=== PATIENT | female | born 2005 | race Caucasian/White ===

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

== ENCOUNTER 2025-03-18 00:12 | Emergency (ER) | payer BC, SELFPAY ==
[2025-03-18] VITALS (38 sets, daily range): BP systolic 75–135; BP diastolic 43–85; PULSE 52–95; RESP 8–22; TEMP 36.6–36.8; O2SAT 94–100; BMI 34.7
--- NOTE | 2025-03-18 | XR_ITS ---
MRI abdomen, without contrast. MRCP Date and time of exam: March 18, 2025 0924 hours INDICATIONS: Nausea right upper abdominal pain today, history Technique: Multiple axial and coronal images of the abdomen have been obtained with the Siemens 1.5T MRI scanner. Images obtained included T1 weighted transverse images, T2-weighted transverse images, T2-weighted transverse images fat-suppressed, T2 weighted haste fat suppressed transverse images, T1 weighted images, in and out of phase images, T2-weighted coronal images, breath hold, T2 weighted haze coronal images as well as T2 weighted coronal thick slab images, MRCP. Findings: Hepatomegaly 19 cm Absent gallbladder Common bile duct 3 to 4 mm no common bile duct or common hepatic duct stones Spleen 12 cm No pancreatic mass or peripancreatic edema No hydronephrosis No ascites Aorta normal size IMPRESSION: Moderate hepatomegaly Absent gallbladder No common bile duct or common bile duct stones Negative for pancreatitis
--- NOTE | 2025-03-18 00:53 | EDNOTE_ITS ---
ED Abdominal Pain RME/HPI General Chief Complaint: Abdominal Pain Stated complaint: R SIDE ABD PAIN Time seen by provider: 03/18/25 00:38 Arrival date/time: 03/18/25 00:12 RME / HPI RME / HPI narrative: This section includes all my notes and documentations, including HPI, PE, and ED course. Humberto Kang MD HPI: 19yo female s/p cholecystectomy, gastric sleeve accompanied by her mom presents to the ED for a chief complaint of RUQ pain. Patient states she's had an upset stomach all week, reporting her pain got significantly worse over the last few hours. Patient reports associated sweating, nausea, and vomiting, endorsing she is unable to keep anything down. Patient denies any fever, chills, dysuria, rash or any other associated symptoms. No other complaints reported. ROS: All negative except as documented in HPI. Physical Exam: General: Alert and oriented. In obvious pain. Eyes: Conjunctivae and lids clear. ENT: No nasal congestion. Neck: Supple. Heart: RRR. Lungs: No respiratory distress. Good air movement. No rhonchi, wheezing, rales. Abdomen: Soft with tenderness in the right flank and RUQ regions. Normal bowel sounds. No distension. No rebound or guarding. Back: No CVA tenderness. Skin: Warm and dry. Neuro: Alert and oriented X 3. Initially, patient was given Zofran ODT and two Tylenol #3. With no improvement, I ordered IV fluid, morphine, Toradol, and diagnostic tests. At 6 AM on 03/18/2025, the care of the patient was transferred to Dr. Zambrano. Humberto Kang MD Related Data Allergies Allergy/AdvReac Type Severity Reaction Status Date / Time No Known Allergies Allergy Verified 03/18/25 00:19 Review of Systems Review of Systems Systems Reviewed: All systems reviewed, normal except as documented Past Medical History Past Medical History CARDIAC: Negative Congestive Heart Failure RESPIRATORY: Positive Chronic Obstructive Pulmonary Disease (COPD) GENITOURINARY: Negative Renal Disease ENDOCRINE: Negative Diabetes Mellitus Type 1 or Diabetes Mellitus Type 2 Surgical History SURGICAL: Positive Tonsillectomy Social History SMOKING STATUS: Never smoker ED Exam Narrative Physical exam: As noted in HPI. Course Quality Measures none Orders Category Date Time Status Saline [Insert IV] NOW Care 03/18/25 03:[address] abdomen pelvis wo con Stat Exams 03/18/25 01:12 Taken US gall bladder Stat Exams 03/18/25 01:13 Taken Amylase Stat Lab 03/18/25 01:30 Completed Bilirubin,Direct Stat Lab 03/18/25 01:30 Completed CBC Stat Lab 03/18/25 01:30 Completed CMP [Comprehensive Metabolic Panel] Stat Lab 03/18/25 01:30 Completed HCG Qualitative,Urine Stat Lab 03/18/25 03:13 Completed HCG,Qualitative Serum Stat Lab 03/18/25 01:30 Completed Lipase Stat Lab 03/18/25 01:30 Completed Magnesium Stat Lab 03/18/25 01:30 Completed UA, C/S IF [Urinalysis, C/S if Indicated] Stat Lab 03/18/25 03:13 Completed ACETAMINOPHEN w/COD 300-30 [Tylenol w/Cod #3] Med 03/18/25 01:12 Discontinued 2 tab PO X1 ONE Ketorolac Inj [Toradol Inj] Med 03/18/25 03:14 Discontinued 30 mg IVP X1 ONE Morphine Inj Med 03/18/25 03:14 Discontinued 6 mg IVP X1 ONE Ondansetron Inj [Zofran Inj] Med 03/18/25 03:14 Discontinued 4 mg IVP X1 ONE Ondansetron Odt [Zofran Odt] Med 03/18/25 01:12 Discontinued 4 mg PO X1 ONE Sodium Chloride 0.9% 1000 ml [Ns] 1,000 ml Med 03/18/25 03:14 Discontinued IV 999 mls/hr Vital Signs Vital signs: Vital Signs Temperature 98.1 F 03/18/25 01:42 Pulse Rate 86 03/18/25 01:42 Respiratory Rate 17 03/18/25 01:42 Blood Pressure 130/85 H 03/18/25 01:42 Pulse Oximetry (%) 98 03/18/25 01:42 Oxygen Delivery Method Room Air 03/18/25 01:42 Abdominal Pain MDM MDM Narrative MDM Narrative:: 19yo female s/p cholecystectomy, gastric sleeve accompanied by her mom presents to the ED for a chief complaint of RUQ pain. Patient states she's had an upset stomach all week, reporting her pain got significantly worse over the last few hours. Patient reports associated sweating, nausea, and vomiting, endorsing she is unable to keep anything down. Patient denies any fever, chills, dysuria, rash or any other associated symptoms. No other complaints reported. Patient data External records reviewed:: [facility] previous records (Per chart review, patient has no relevant previous ED visits.) Clinical information provided by:: patient Social determinants that could affect healthcare access:: none Patient has the following chronic illnesses:: none How is presenting disease/condition affected by chronic disease/condition?: no chronic disease Evaluation data The following diagnostics were reviewed and interpreted by me:: lab results and radiology exam(s) Lab and/or radiology exams considered but not ordered:: none Interpretation Summary: Complete diagnostic test results are pending. Medications / Prescriptions Medications or Prescriptions considered but not ordered:: none Medication administrations:: Medication Administration History Discontinued Medications Acetaminophen/Codeine Phosphate (Acetaminophen W/Cod 300-30 Tablet) 2 tab PO X1 ONE Stop: 03/18/25 01:13 Last Admin: 03/18/25 01:39 Dose: 2 tab Documented By: LUIS Sodium Chloride (Ns) 1,000 mls @ 999 mls/hr IV .Q1H1M ONE Stop: 03/18/25 04:14 Last Admin: 03/18/25 04:05 Dose: 999 mls/hr Documented By: ELYSSA Ketorolac Tromethamine (Ketorolac Inj 30 Mg/Ml Vial) 30 mg IVP X1 ONE Stop: 03/18/25 03:15 Last Admin: 03/18/25 04:04 Dose: 30 mg Documented By: CCT Morphine Sulfate (Morphine Sulf Inj 10 Mg/Ml Vial) 6 mg IVP X1 ONE Stop: 03/18/25 03:15 Last Admin: 03/18/25 04:04 Dose: 6 mg Documented By: CCT Ondansetron HCl (Ondansetron Odt 4 Mg Tabrap) 4 mg PO X1 ONE; Protocol Stop: 03/18/25 01:13 Last Admin: 03/18/25 01:39 Dose: 4 mg Documented By: LUIS Ondansetron HCl (Ondansetron Inj 2 Mg/Ml Inj 2 Ml) 4 mg IVP X1 ONE; Protocol Stop: 03/18/25 03:15 Last Admin: 03/18/25 04:05 Dose: 4 mg Documented By: CCT Tylenol with Codeine, NS, Toradol, Morphine, Zofran Consultations Consultation(s) initiated? (list below): No Diagnosis Differential diagnosis abdominal pain: acute appendicitis, calculus of kidney, constipation, diverticulitis, endometriosis, gastroenteritis, pancreatitis and small bowel obstruction Most likely diagnosis given after review of the tests above:: Complete diagnostic test results are pending. Admission Indicated Admission indicated?: not indicated Explain why admission is indicated or not indicated:: Complete diagnostic test results are pending. Admission Request Was there a request for admission?: No Disposition Plan Disposition Plan: other (specify) (Care of the patient was transferred to next s [facility] physician.) Discharge Plan Prescriptions/Referrals Referrals: Toro Lange MD [Primary Care Provider] - In 1 week Problem List Clinical Impression: Abdominal pain Patient/Caregiver Discharge Instructions Print Language: Khmer
--- NOTE | 2025-03-18 01:12 | XR_ITS ---
Examination: CT abdomen and pelvis without contrast. Coronal 3-D reconstructions. Sagittal 2-D reconstructions. Date and time of exam:March 18, 2025 0438 hours INDICATIONS: Onset flank pain today CTDI: vol (mGy): 12 DLP: (mGycm): 708 Technique: Axial images of the abdomen have been obtained, 3 mm slice thickness Intravenous contrast material has not been administered. Low dose protocols were performed. One or more of the following dose reduction techniques were used; automated exposure control, adjustment of the mA and/or KV according to patient size, use of iterative reconstruction technique. Findings: No focal liver or splenic lesions Gastric sutures Absent gallbladder No pancreatic mass 2 mm right renal calculus, no hydronephrosis or ureteral calculi Normal appendix No bowel obstruction 39 mm hypodense left adnexal mass Mild free fluid in the pelvis No bladder mass or bladder calculi IMPRESSION: 2 mm nonobstructing right renal calculus, no hydronephrosis or ureteral calculi Recommend pelvic sonography to assess 39 mm hypodense left adnexal mass
--- NOTE | 2025-03-18 01:13 | XR_ITS ---
Examination: Abdomen sonogram, Limited Date and time of exam: March 18, 2025 0226 hours indications: Right upper abdominal pain and nausea beginning today. Technique: Real-time julio scale transabdominal sonographic images of the upper abdomen obtained. Findings: Absent gallbladder Common bile duct 0.4 cm no stones Pancreatic head 2.5 cm Liver 18.1 cm fatty infiltration lobular contour Normal hepatopedal portal venous flow Patent IVC IMPRESSION: No common bile duct stones Mild hepatomegaly fatty infiltration, suspect primary hepatocellular disease
[2025-03-18] MEDS: ONDANSETRON ODT 4 MG TABRAP PO (01:39)
[2025-03-18] MEDS: ACETAMINOPHEN w/COD 300-30 TABLET 2 TAB PO (01:39)
[2025-03-18 01:59] LABS: Basophils % (Auto) 0 % (0-2.5); Eosinophils # (Auto) 0.2 Thou/mm3 (0.0-0.5); Eosinophils % (Auto) 2 % (0-10); Hematocrit 35.8 % (36.0-46.0); Hemoglobin 12.4 g/dL (12.0-16.0); Immature Granulocytes % (Auto) 1 % (0-0); Immature Granulocytes Auto 0.05 Thou/mm3 (0.00-0.00); Lymphocytes # (Auto) 1.2 Thou/mm3 (1.0-5.0); Lymphocytes % (Auto) 11 % (10-50); Mean Corpuscular HGB Conc 34.6 g/dl (31.0-37.0); Mean Corpuscular Hemoglobin 28.6 pg (25.0-35.0); Mean Corpuscular Volume 83 fL (80-100); Monocytes % (Auto) 9 % (0-12); Neutrophils # (Auto) 8.5 Thou/mm3 (1.8-7.7); Neutrophils % (Auto) 77 % (37-80); Nucleated Red Blood Cell % 0 /100 WBC (0); Platelet Count 230 Thou/mm3 (140-440); RDW Standard Deviation 39.2 fL (36.4-46.3); Red Blood Count 4.33 Miln/mm3 (4.00-5.20); White Blood Count 10.9 Thou/mm3 (4.5-11.0)
[2025-03-18 02:23] LABS: Alanine Aminotransferase 17 U/L (10-49); Albumin, Serum 4.2 gm/dL (3.5-5.0); Albumin/Globulin Ratio 2.2 (1.2-2.2); Alkaline Phosphatase 71 U/L (46-116); Amylase 56 U/L (30-118); Anion Gap 10 (7-16); Aspartate Amino Transferase 25 U/L (0-34); BUN/Creatinine Ratio 16 Ratio (12-20); Bilirubin,Direct 0.3 mg/dL (0.0-0.3); Bilirubin,Total 1.1 mg/dL (0.3-1.2); Blood Urea Nitrogen 11 mg/dL (9-23); Calcium 8.4 mg/dL (8.3-10.6); Calcium (Corrected) 8.4 mg/dL (8.5-10.1); Carbon Dioxide 25.6 mMol/L (20.0-31.0); Chloride 106 mMol/L (98-107); Creatinine (Component) 0.7 mg/dL (0.6-1.3); Estimated Creatinine Clearance 152.2 mL/min (>60); Globulin 1.9 gm/dL (2.3-3.5); Glucose 96 mg/dL (74-106); Lipase 58 U/L (12-53); Magnesium 1.9 mg/dL (1.6-2.6); Osmolality,Calculated 282 (275-295); Potassium 3.8 mMol/L (3.4-5.1); Sodium 142 mMol/L (136-145); Total Protein 6.1 gm/dL (5.7-8.2); eGFR > 60 See Note
[2025-03-18 02:31] LABS: HCG,Qualitative Serum Negative
[2025-03-18 03:18] LABS: Collection Type, Urine Clean Catch
[2025-03-18 03:43] LABS: HCG Qualitative,Urine Negative
[2025-03-18 03:51] LABS: Bacteria,Urine Rare; Bilirubin,Urine Negative (Negative); Blood,Urine Negative (Negative); Clarity,Urine Clear (Clear/Hazy); Color,Urine Yellow (Lt Yel-Yel); Culture Indicated,Urine Contaminated; Glucose, Urine Negative (Negative); Ketones,Urine Negative (Negative); Leukocyte Esterase,Urine Positive (Negative); Nitrite,Urine Negative (Negative); Protein,Urine Negative (Neg - Trace); RBC,Urine 10 /hpf (0-3); Squamous Epithelial Cell,Urine 19 /hpf (0-5); WBC,Urine 11 /hpf (0-5)
[2025-03-18] MEDS: KETOROLAC INJ 30 MG/ML VIAL IVP (04:04)
[2025-03-18] MEDS: MORPHINE SULF INJ 10 MG/ML VIAL 6 MG IVP (04:04)
[2025-03-18] MEDS: SODIUM CHLORIDE 0.9% 1000 ML 1,000 ML 999 ML IV (04:05)
[2025-03-18] MEDS: ONDANSETRON INJ 2 MG/ML INJ 2 ML 4 MG IVP (04:05)
--- NOTE | 2025-03-18 06:41 | EDNOTE_ITS ---
Emergency Room Addendum <Merary Frost - Last Filed: 03/18/25 16:52> Addendum Narrative: 0600: Care assumed from Dr. Kang, the previous shift emergency physician. Past medical, surgical, social and family history reviewed. Vitals and home medications reviewed. I will assume the care of the patient at this time. Please refer to the emergency department record for history and examination from initial visit.? Physical exam by me shows patient under no acute distress at this time. Patient was reevaluated she is alert awake states she feels little tired no obvious icterus. Abdomen is soft there is no longer vomiting asking she can drink some fluids. Reports for the ultrasound and CT are pending at 0720 hrs. Also mother is in the room patient evidently had gastric bypass surgery done several years ago with Dr. Stein in [place]. Patient was also sent to [facility] and then evidently [facility] where she had her gallbladder removed and was told she had choledocholithiasis but no ERCP was done and has not been done since that time no follow-up MRCP has been done. And patient has her second episode of intractable nausea and vomiting today. She denies any drugs or alcohol. Does not smoke. Has no other medical problems at this time. 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 Will add on a urine drug screen and an MRCP to follow-up on the history of choledocholithiasis and unexplained nausea vomiting today. 0735: I called Jolene and Kieran that there are still no radiology reports. 1420: Discussed test HPI, PMHx, lab, radiology results and/or management with Dr. Stein from [facility]. Accepts the patient for transfer. <Meño Zambrano MD - Last Filed: 03/18/25 20:49> Addendum Narrative: 0600: Care assumed from Dr. Kang, the previous shift emergency physician. Past medical, surgical, social and family history reviewed. Vitals and home medications reviewed. I will assume the care of the patient at this time. Please refer to the emergency department record for history and examination from initial visit.? Physical exam by me shows patient under no acute distress at this time. Patient was reevaluated she is alert awake states she feels little tired no obvious icterus. Abdomen is soft there is no longer vomiting asking she can drink some fluids. Reports for the ultrasound and CT are pending at 0720 hrs. Also mother is in the room patient evidently had gastric bypass surgery done several years ago with Dr. Stein in [place]. Patient was also sent to [facility] and then evidently the [facility] where she had her gallbladder removed and was told she had choledocholithiasis but no ERCP was done and has not been done since that time no follow-up MRCP has been done. And patient has her second episode of intractable nausea and vomiting today. She denies any drugs or alcohol. Does not smoke. Has no other medical problems at this time. 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 Will add on a urine drug screen and an MRCP to follow-up on the history of choledocholithiasis and unexplained nausea vomiting today. 0735: I called Stormy that there are still no radiology reports. 1420: Discussed test HPI, PMHx, lab, radiology results and/or management with Dr. Stein from [facility]. Accepts the patient for transfer. Transfer nurse was involved they consummated the transfer patient eventually went to the [facility] in [place]. Results <Merary Frost - Last Filed: 03/18/25 16:52> Objective Laboratory: Laboratory Last Values WBC 10.9 Thou/mm3 (4.5-11.0) 03/18/25 01:30 RBC 4.33 Miln/mm3 (4.00-5.20) 03/18/25 01:30 Hgb 12.4 g/dL (12.0-16.0) 03/18/25 01:30 Hct 35.8 % (36.0-46.0) L 03/18/25 01:30 MCV 83 fL (80-100) 03/18/25 01:30 MCH 28.6 pg (25.0-35.0) 03/18/25 01:30 MCHC 34.6 g/dl (31.0-37.0) 03/18/25 01:30 RDW Std Deviation 39.2 fL (36.4-46.3) 03/18/25 01:30 Plt Count 230 Thou/mm3 (140-440) 03/18/25 01:30 Neut % (Auto) 77 % (37-80) 03/18/25 01:30 Lymph % (Auto) 11 % (10-50) 03/18/25 01:30 Guadalupe % (Auto) 9 % (0-12) 03/18/25 01:30 Eos % (Auto) 2 % (0-10) 03/18/25 01:30 Baso % (Auto) 0 % (0-2.5) 03/18/25 01:30 Neut # (Auto) 8.5 Thou/mm3 (1.8-7.7) H 03/18/25 01:30 Lymph # (Auto) 1.2 Thou/mm3 (1.0-5.0) 03/18/25 01:30 [place]upe # (Auto) 1.0 Thou/mm3 (0.0-0.8) H 03/18/25 01:30 Eos # (Auto) 0.2 Thou/mm3 (0.0-0.5) 03/18/25 01:30 Baso # (Auto) 0.0 Thou/mm3 (0.0-0.2) 03/18/25 01:30 Immature Gran # (Auto) 0.05 Thou/mm3 (0.00-0.00) H 03/18/25 01:30 Absolute Nucleated RBC 0.00 Thou/mm3 (0.00-0.00) 03/18/25 01:30 Immature Gran % 1 % (0-0) H 03/18/25 01:30 Nucleated RBC % 0 /100 WBC (0) 03/18/25 01:30 Sodium 142 mMol/L (136-145) 03/18/25 01:30 Potassium 3.8 mMol/L (3.4-5.1) 03/18/25 01:30 Chloride 106 mMol/L (98-107) 03/18/25 01:30 Carbon Dioxide 25.6 mMol/L (20.0-31.0) 03/18/25 01:30 Anion Gap 10 (7-16) 03/18/25 01:30 BUN 11 mg/dL (9-23) 03/18/25 01:30 Creatinine 0.7 mg/dL (0.6-1.3) 03/18/25 01:30 Estim Creat Clear Calc 152.2 mL/min (>60) 03/18/25 01:30 eGFR > 60 See Note (60-) 03/18/25 01:30 BUN/Creatinine Ratio 16 Ratio (12-20) 03/18/25 01:30 Glucose 96 mg/dL (74-106) 03/18/25 01:30 Calculated Osmolality 282 (275-295) 03/18/25 01:30 Calcium 8.4 mg/dL (8.3-10.6) 03/18/25 01:30 Corrected Calcium 8.4 mg/dL (8.5-10.1) L 03/18/25 01:30 Magnesium 1.9 mg/dL (1.6-2.6) 03/18/25 01:30 Total Bilirubin 1.1 mg/dL (0.3-1.2) 03/18/25 01:30 Direct Bilirubin 0.3 mg/dL (0.0-0.3) 03/18/25 01:30 AST 25 U/L (0-34) 03/18/25 01:30 ALT 17 U/L (10-49) 03/18/25 01:30 Alkaline Phosphatase 71 U/L (46-116) 03/18/25 01:30 Total Protein 6.1 gm/dL (5.7-8.2) 03/18/25 01:30 Albumin 4.2 gm/dL (3.5-5.0) 03/18/25 01:30 Globulin 1.9 gm/dL (2.3-3.5) L 03/18/25 01:30 Albumin/Globulin Ratio 2.2 (1.2-2.2) 03/18/25 01:30 Amylase 56 U/L (30-118) 03/18/25 01:30 Lipase 58 U/L (12-53) H 03/18/25 01:30 HCG, Qual Negative 03/18/25 01:30 Ur Collection Type Clean Catch 03/18/25 03:13 Urine Color Yellow (Lt Yel-Yel) 03/18/25 03:13 Urine Clarity Clear (Clear/Hazy) 03/18/25 03:13 Urine pH 6.0 (5.0-7.0) 03/18/25 03:13 Ur Specific [place] 1.030 (1.001-1.035) 03/18/25 03:13 Urine Protein Negative (Neg - Trace) 03/18/25 03:13 Urine Glucose (UA) Negative (Negative) 03/18/25 03:13 Urine Ketones Negative (Negative) 03/18/25 03:13 Urine Blood Negative (Negative) 03/18/25 03:13 Urine Nitrite Negative (Negative) 03/18/25 03:13 Urine Bilirubin Negative (Negative) 03/18/25 03:13 Urine Urobilinogen (Auto) 2.0 mg/dL (0.0-1.0) 03/18/25 03:13 Ur Leukocyte Esterase Positive (Negative) 03/18/25 03:13 Urine RBC 10 /hpf (0-3) H 03/18/25 03:13 Urine WBC 11 /hpf (0-5) H 03/18/25 03:13 Ur Squamous Epith Cells 19 /hpf (0-5) H 03/18/25 03:13 Urine Bacteria Rare (None) 03/18/25 03:13 Ur Culture Indicated? Contaminated 03/18/25 03:13 Urine HCG, Qual Negative 03/18/25 03:13 Imaging: Procedure(s): US gall bladder Accession Number(s): [id number] cc: Humberto Kang MD; Valdo Alcaraz MD; Toro Lange MD~ Examination: Abdomen sonogram, Limited Date and time of exam: March 18, 2025 0226 hours indications: Right upper abdominal pain and nausea beginning today. Technique: Real-time julio scale transabdominal sonographic images of the upper abdomen obtained. Findings: Absent gallbladder Common bile duct 0.4 cm no stones Pancreatic head 2.5 cm Liver 18.1 cm fatty infiltration lobular contour Normal hepatopedal portal venous flow Patent IVC IMPRESSION: No common bile duct stones Mild hepatomegaly fatty infiltration, suspect primary hepatocellular disease Dictated By: Valdo Alcaraz MD Procedure(s): CT abdomen pelvis wo con Accession Number(s): [id number] cc: Humberto Kang MD; Valdo Alcaraz MD; Toro Lange MD~ Examination: CT abdomen and pelvis without contrast. Coronal 3-D reconstructions. Sagittal 2-D reconstructions. Date and time of exam:March 18, 2025 0438 hours INDICATIONS: Onset flank pain today CTDI: vol (mGy): 12 DLP: (mGycm): 708 Technique: Axial images of the abdomen have been obtained, 3 mm slice thickness Intravenous contrast material has not been administered. Low dose protocols were performed. One or more of the following dose reduction techniques were used; automated exposure control, adjustment of the mA and/or KV according to patient size, use of iterative reconstruction technique. Findings: No focal liver or splenic lesions Gastric sutures Absent gallbladder No pancreatic mass 2 mm right renal calculus, no hydronephrosis or ureteral calculi Normal appendix No bowel obstruction 39 mm hypodense left adnexal mass Mild free fluid in the pelvis No bladder mass or bladder calculi IMPRESSION: 2 mm nonobstructing right renal calculus, no hydronephrosis or ureteral calculi Recommend pelvic sonography to assess 39 mm hypodense left adnexal mass Dictated By: Valdo Alcaraz MD Procedure(s): MR MRCP Accession Number(s): [id number] cc: Meño Zambrano MD; Valdo Alcaraz MD; Toro Lange MD~ MRI abdomen, without contrast. MRCP Date and time of exam: March 18, 2025 0924 hours INDICATIONS: Nausea right upper abdominal pain today, history Technique: Multiple axial and coronal images of the abdomen have been obtained with the Siemens 1.5T MRI scanner. Images obtained included T1 weighted transverse images, T2-weighted transverse images, T2-weighted transverse images fat-suppressed, T2 weighted haste fat suppressed transverse images, T1 weighted images, in and out of phase images, T2-weighted coronal images, breath hold, T2 weighted haze coronal images as well as T2 weighted coronal thick slab images, MRCP. Findings: Hepatomegaly 19 cm Absent gallbladder Common bile duct 3 to 4 mm no common bile duct or common hepatic duct stones Spleen 12 cm No pancreatic mass or peripancreatic edema No hydronephrosis No ascites Aorta normal size IMPRESSION: Moderate hepatomegaly Absent gallbladder No common bile duct or common bile duct stones Negative for pancreatitis Dictated By: Valdo Alcaraz MD <Meño Zambrano MD - Last Filed: 03/18/25 20:49> Objective Laboratory: Laboratory Last Values WBC 10.9 Thou/mm3 (4.5-11.0) 03/18/25 01:30 RBC 4.33 Miln/mm3 (4.00-5.20) 03/18/25 01:30 Hgb 12.4 g/dL (12.0-16.0) 03/18/25 01:30 Hct 35.8 % (36.0-46.0) L 03/18/25 01:30 MCV 83 fL (80-100) 03/18/25 01:30 MCH 28.6 pg (25.0-35.0) 03/18/25 01:30 MCHC 34.6 g/dl (31.0-37.0) 03/18/25 01:30 RDW Std Deviation 39.2 fL (36.4-46.3) 03/18/25 01:30 Plt Count 230 Thou/mm3 (140-440) 03/18/25 01:30 Neut % (Auto) 77 % (37-80) 03/18/25 01:30 Lymph % (Auto) 11 % (10-50) 03/18/25 01:30 [place]upe % (Auto) 9 % (0-12) 03/18/25 01:30 Eos % (Auto) 2 % (0-10) 03/18/25 01:30 Baso % (Auto) 0 % (0-2.5) 03/18/25 01:30 Neut # (Auto) 8.5 Thou/mm3 (1.8-7.7) H 03/18/25 01:30 Lymph # (Auto) 1.2 Thou/mm3 (1.0-5.0) 03/18/25 01:30 [place] # (Auto) 1.0 Thou/mm3 (0.0-0.8) H 03/18/25 01:30 Eos # (Auto) 0.2 Thou/mm3 (0.0-0.5) 03/18/25 01:30 Baso # (Auto) 0.0 Thou/mm3 (0.0-0.2) 03/18/25 01:30 Immature Gran # (Auto) 0.05 Thou/mm3 (0.00-0.00) H 03/18/25 01:30 Absolute Nucleated RBC 0.00 Thou/mm3 (0.00-0.00) 03/18/25 01:30 Immature Gran % 1 % (0-0) H 03/18/25 01:30 Nucleated RBC % 0 /100 WBC (0) 03/18/25 01:30 Sodium 142 mMol/L (136-145) 03/18/25 01:30 Potassium 3.8 mMol/L (3.4-5.1) 03/18/25 01:30 Chloride 106 mMol/L (98-107) 03/18/25 01:30 Carbon Dioxide 25.6 mMol/L (20.0-31.0) 03/18/25 01:30 Anion Gap 10 (7-16) 03/18/25 01:30 BUN 11 mg/dL (9-23) 03/18/25 01:30 Creatinine 0.7 mg/dL (0.6-1.3) 03/18/25 01:30 Estim Creat Clear Calc 152.2 mL/min (>60) 03/18/25 01:30 eGFR > 60 See Note (60-) 03/18/25 01:30 BUN/Creatinine Ratio 16 Ratio (12-20) 03/18/25 01:30 Glucose 96 mg/dL (74-106) 03/18/25 01:30 Calculated Osmolality 282 (275-295) 03/18/25 01:30 Calcium 8.4 mg/dL (8.3-10.6) 03/18/25 01:30 Corrected Calcium 8.4 mg/dL (8.5-10.1) L 03/18/25 01:30 Magnesium 1.9 mg/dL (1.6-2.6) 03/18/25 01:30 Total Bilirubin 1.1 mg/dL (0.3-1.2) 03/18/25 01:30 Direct Bilirubin 0.3 mg/dL (0.0-0.3) 03/18/25 01:30 AST 25 U/L (0-34) 03/18/25 01:30 ALT 17 U/L (10-49) 03/18/25 01:30 Alkaline Phosphatase 71 U/L (46-116) 03/18/25 01:30 Total Protein 6.1 gm/dL (5.7-8.2) 03/18/25 01:30 Albumin 4.2 gm/dL (3.5-5.0) 03/18/25 01:30 Globulin 1.9 gm/dL (2.3-3.5) L 03/18/25 01:30 Albumin/Globulin Ratio 2.2 (1.2-2.2) 03/18/25 01:30 Amylase 56 U/L (30-118) 03/18/25 01:30 Lipase 58 U/L (12-53) H 03/18/25 01:30 HCG, Qual Negative 03/18/25 01:30 Ur Collection Type Clean Catch 03/18/25 03:13 Urine Color Yellow (Lt Yel-Yel) 03/18/25 03:13 Urine Clarity Clear (Clear/Hazy) 03/18/25 03:13 Urine pH 6.0 (5.0-7.0) 03/18/25 03:13 Ur Specific [place] 1.030 (1.001-1.035) 03/18/25 03:13 Urine Protein Negative (Neg - Trace) 03/18/25 03:13 Urine Glucose (UA) Negative (Negative) 03/18/25 03:13 Urine Ketones Negative (Negative) 03/18/25 03:13 Urine Blood Negative (Negative) 03/18/25 03:13 Urine Nitrite Negative (Negative) 03/18/25 03:13 Urine Bilirubin Negative (Negative) 03/18/25 03:13 Urine Urobilinogen (Auto) 2.0 mg/dL (0.0-1.0) 03/18/25 03:13 Ur Leukocyte Esterase Positive (Negative) 03/18/25 03:13 Urine RBC 10 /hpf (0-3) H 03/18/25 03:13 Urine WBC 11 /hpf (0-5) H 03/18/25 03:13 Ur Squamous Epith Cells 19 /hpf (0-5) H 03/18/25 03:13 Urine Bacteria Rare (None) 03/18/25 03:13 Ur Culture Indicated? Contaminated 03/18/25 03:13 Urine HCG, Qual Negative 03/18/25 03:13
[2025-03-18] MEDS: METOCLOPRAMIDE INJ 5 MG/ML VIAL 2 ML 10 MG IVP ×3 (07:55→15:46)
[2025-03-18] MEDS: SODIUM CHLORIDE 0.9% 1000 ML 1,000 ML 150 ML IV (07:56)
[2025-03-18 08:24] LABS: Amphetamine/Methamp Scrn,U Negative (Negative); Barbiturate Screen,Urine Negative (Negative); Benzodiazepines Screen,Urine Negative (Negative); Benzoylecgonine Screen, Ur Negative (Negative); Fentanyl Screen,Urine Negative (Negative); Opiate Screen,Urine Negative (Negative); THC Screen,Urine Negative (Negative)
--- NOTE | 2025-03-18 14:28 | PC.CC ---
Addendum entered by Chandler Leal RN 03/18/25 17:49: 1740 sent paperwork to [facility]. Called [facility], spoke to [facility] and set up the transport. The orange picker time is 1900. 1730 transfer packet is complete including all signatures. Transfer packet given to charge nurse. Charge nurse has the CD for the pt and number to call for report is on tracker. Addendum entered by Chandler Leal RN 03/18/25 16:31: 1628 spoke to Junie at [facility], pt is accepted at [facility]. Accepted by Dr. Stein. Pt is going to Room 323. Report can be called at [phone]. Addendum entered by Chandler Leal RN 03/18/25 15:52: 1544 received call from Junie at [facility], she is requested to speak with Dr. Zambrano, conference call connected. Addendum entered by Chandler Leal RN 03/18/25 15:28: 1528 images pusehd to [facility] via [employer]. Addendum entered by Chandler Leal RN 03/18/25 15:27: 1522 called [facility], spoke to [facility] and initiated the transfer. She stated she got a stat transfer and will call me back. Addendum entered by Chandler Leal RN 03/18/25 15:16: 1505 clinicals sent to [facility]. Original Note: [address] Zambrano to reach out to [facility], pt needs to be transferred to [facility] and Dr. Stein is accepting the pt. Pt has hx of gastric bypass several years ago done by Dr. Stein.
[2025-03-18] MEDS: MORPHINE SULF INJ 10 MG/ML VIAL 4 MG IVP (15:45)
== END 2025-03-18 19:30 | disposition short-term general hospital (02) ==
PROVIDERS: Emergency Medicine; Emergency Provider Emergency Medicine; PCP Family Medicine
DX: N20.0 Calculus of kidney (principal); K76.0 Fatty (change of) liver, not elsewhere classified
CPT/HCPCS: 36415; 74176; 76705; 80053; 80307; 81001; 81025; 82150; 82248; 83690; 83735; 84703; 85025; 96361; 96374; 96375; 96376; 99285; J1885; J2270; J2405; J2765; J7030; Q0162; S8037; 74181; A9270

== ENCOUNTER → 2025-07-12 | Outpatient (CLI) | payer BC, SELFPAY ==
[2025-07-12 14:00] LABS: Basophils # (Auto) 0.0 Thou/mm3 (0.0-0.2); Basophils % (Auto) 1 % (0-2.5); Eosinophils # (Auto) 0.1 Thou/mm3 (0.0-0.5); Eosinophils % (Auto) 2 % (0-10); Hematocrit 36.7 % (36.0-46.0); Hemoglobin 11.8 g/dL (12.0-16.0); Immature Granulocytes Auto 0.02 Thou/mm3 (0.00-0.00); Lymphocytes # (Auto) 1.8 Thou/mm3 (1.0-4.8); Lymphocytes % (Auto) 29 % (10-50); Mean Corpuscular HGB Conc 32.2 g/dl (31.0-37.0); Mean Corpuscular Hemoglobin 26.9 pg (25.0-35.0); Mean Corpuscular Volume 84 fL (80-100); Monocytes # (Auto) 0.6 Thou/mm3 (0.0-0.8); Monocytes % (Auto) 10 % (0-12); Neutrophils # (Auto) 3.6 Thou/mm3 (1.8-7.7); Neutrophils % (Auto) 59 % (37-80); Nucleated Red Blood Cell # 0.00 Thou/mm3 (0.00-0.00); Nucleated Red Blood Cell % 0 /100 WBC (0); Platelet Count 292 Thou/mm3 (140-440); RDW Standard Deviation 38.5 fL (36.4-46.3); Red Blood Count 4.39 Miln/mm3 (4.00-5.20); White Blood Count 6.2 Thou/mm3 (4.5-11.0)
[2025-07-12 14:25] LABS: Ferritin 6 ng/mL (7.3-270.7); Iron 56 mcg/dL (50-170)
[2025-07-12 14:29] LABS: Alanine Aminotransferase 12 U/L (10-49); Albumin, Serum 4.1 gm/dL (3.5-5.0); Albumin/Globulin Ratio 2.3 (1.2-2.2); Alkaline Phosphatase 62 U/L (46-116); Anion Gap 10 (7-16); Aspartate Amino Transferase 12 U/L (0-34); BUN/Creatinine Ratio 13 Ratio (12-20); Bilirubin,Total 1.0 mg/dL (0.3-1.2); Blood Urea Nitrogen 10 mg/dL (9-23); Calcium 9.6 mg/dL (8.3-10.6); Calcium (Corrected) 9.6 mg/dL (8.5-10.1); Carbon Dioxide 26.3 mMol/L (20.0-31.0); Chloride 107 mMol/L (98-107); Creatinine (Component) 0.8 mg/dL (0.6-1.3); Globulin 1.8 gm/dL (2.3-3.5); Glucose 92 mg/dL (74-106); Lipase 39 U/L (12-53); Osmolality,Calculated 283 (275-295); Potassium 4.4 mMol/L (3.4-5.1); Sodium 143 mMol/L (136-145); Total Protein 5.9 gm/dL (5.7-8.2); eGFR > 60 See Note
== END | disposition home or self-care (01) ==
LOC: COPL 13:21
PROVIDERS: PCP Family Medicine; Referring Provider Physician Assistant; Visit Provider Physician Assistant
DX: D50.9 Iron deficiency anemia, unspecified (principal); R17 Unspecified jaundice
CPT/HCPCS: 36415; 80053; 82728; 83540; 83690; 85025

== ENCOUNTER → 2025-08-12 | Outpatient (CLI) | payer BC, SELFPAY ==
--- NOTE | 2025-08-12 10:37 | XR_ITS ---
Examination: Knee, left, 3 views Technique: Knee AP, lateral, oblique 3 views Date and time of exam: August 12, 2025, 1117 hours INDICATION: Left knee pain beginning 2 years ago. FINDINGS: Minimal tricompartment osteoarthritis No fracture or dislocation IMPRESSION: Minimal tricompartment osteoarthritis
== END | disposition home or self-care (01) ==
LOC: CDIM 10:20
PROVIDERS: PCP Family Medicine; Referring Provider Physician Assistant; Visit Provider Physician Assistant
DX: M17.12 Unilateral primary osteoarthritis, left knee (principal)
CPT/HCPCS: 73562